=== PATIENT | female | born 1980 | race Native Hawaiian/Other Pacific Islander ===

== ENCOUNTER 2018-04-02 12:14 | Emergency (ER) | payer MEDICAID, OTHER ==
[~2018-04-02] VITALS: Ht 170.2 cm; Wt 115.0 kg
[~2018-04-02 12:14] MED LIST: PREN-64 PO
[2018-04-02] MEDS ORDERED: IBUPROFEN 600 MG TABLET PO ONE (13:30)
[2018-04-02] MEDS ORDERED: ACETAMINOPHEN 500 MG TABLET PO ONE (13:30)
[2018-04-02 13:50] VITALS: BP 137/82
== END 2018-04-02 14:02 | disposition home or self-care (01) ==
LOC: EMS 12:14
DX: H66.92 Otitis media, unspecified, left ear (principal); F15.90 Other stimulant use, unspecified, uncomplicated; F17.200 Nicotine dependence, unspecified, uncomplicated
CPT/HCPCS: 99283

== ENCOUNTER 2018-04-08 11:39 | Emergency (ER) | payer OTHER ==
[~2018-04-08] VITALS: Ht 170.2 cm; Wt 106.8 kg
[2018-04-08 14:17] VITALS: BP 126/75
== END 2018-04-08 14:20 | disposition home or self-care (01) ==
LOC: EMS 12:00
DX: S00.03XA Contusion of scalp, initial encounter (principal); F15.90 Other stimulant use, unspecified, uncomplicated; Y00.XXXA Assault by blunt object, initial encounter; Y93.89 Activity, other specified; Y92.89 Other specified places as the place of occurrence of the external cause; Y99.8 Other external cause status
CPT/HCPCS: 70450; 70486; 99284

== ENCOUNTER 2021-02-11 06:32 | Emergency (ER) | payer MEDICAID, OTHER ==
[~2021-02-11] VITALS: Ht 170.2 cm; Wt 118.2 kg
[2021-02-11 06:49] VITALS: BP 138/86
[2021-02-11] MEDS ORDERED: SODIUM CHLORIDE 0.9% 1,000 ML IV ONE (07:15)
[2021-02-11] MEDS ORDERED: KETOROLAC TROMETHAMINE 30 MG/ML VIAL IVP ONE (07:15)
[2021-02-11 07:52] LABS: BASOPHILS % (AUTO) 0.9 % (0.0-2.0); EOSINOPHILS % (AUTO) 0.7 % (1.0-6.0); HEMOGLOBIN 12.6 g/dL (12.0-16.0); LYMPHOCYTES # (AUTO) 1.7 K/uL (1.0-4.8); LYMPHOCYTES % (AUTO) 25.6 % (22.0-44.0); MEAN CORPUSCULAR HEMOGLOBIN 29.4 pg (26.0-34.0); MEAN CORPUSCULAR HGB CONC 32.2 G/dL (31.0-37.0); MEAN CORPUSCULAR VOLUME 91 fL (80-100); MONOCYTES # (AUTO) 0.4 K/uL (0.1-1.0); MONOCYTES % (AUTO) 5.5 % (2.0-9.0); NEUTROPHILS # (AUTO) 4.4 K/uL (1.8-7.7); NEUTROPHILS % (AUTO) 67.3 % (40.0-70.0); PLATELET COUNT (AUTO) 313 K/uL (150-450); RED BLOOD CELL COUNT(AUTO) 4.27 MIL/uL (4.00-5.20); RED CELL DISTRIBUTION WIDTH 12.8 % (11.5-14.5)
[2021-02-11 08:12] LABS: CALCIUM, TOTAL 8.5 mg/dL (8.8-10.5); CARBON DIOXIDE 28 mmol/L (22-29); CHLORIDE 101 mmol/L (98-107); CREATININE 0.71 mg/dL (0.60-1.30); GLOMERULAR FILTR. RATE CALC > 60 mL/min (>60); GLUCOSE,RANDOM 95 mg/dL (70-110); UREA NITROGEN, BLOOD 11 mg/dL (7-18)
[2021-02-11 08:13] LABS: ANION GAP 8 mmol/L (8-16); POTASSIUM 3.6 mmol/L (3.5-5.1); SODIUM SERUM 137 mmol/L (136-145)
[2021-02-11 08:15] LABS: ALANINE AMINOTRANSFERASE 34 U/L (12-78); ALBUMIN 3.6 g/dL (3.4-5.0); ALKALINE PHOSPHATASE 67 U/L (46-116); ASPARTATE AMINOTRANSFERASE 26 U/L (15-37); BILIRUBIN,TOTAL 0.4 mg/dL (0.1-1.0); HCG,QUANTITATIVE < 1 mIU/mL (0-6); LIPASE 56 U/L (73-393); TOTAL PROTEIN, SERUM 7.5 g/dL (6.4-8.2)
== END 2021-02-11 08:20 | disposition left against medical advice (07) ==
LOC: EMS 06:33
DX: R07.89 Other chest pain (principal); R10.84 Generalized abdominal pain; F17.210 Nicotine dependence, cigarettes, uncomplicated
CPT/HCPCS: 71045; 80053; 83690; 84484; 84702; 85025; 93005; 96361; 96374; 99285; G0480; J1885; J7030

== ENCOUNTER 2022-12-27 00:36 | Emergency (ER) | payer MEDICAID ==
[~2022-12-27] VITALS: Ht 170.2 cm; Wt 113.6 kg
[2022-12-27 01:07] VITALS: BP 150/81
[2022-12-27 02:14] LABS: BASOPHILS % (AUTO) 0.8 % (0.0-2.0); EOSINOPHILS % (AUTO) 3.3 % (1.0-6.0); HEMATOCRIT 38.9 % (36-46); HEMOGLOBIN 12.9 g/dL (12.0-16.0); LYMPHOCYTES # (AUTO) 2.7 K/uL (1.0-4.8); LYMPHOCYTES % (AUTO) 35.7 % (22.0-44.0); MEAN CORPUSCULAR HEMOGLOBIN 28.9 pg (26.0-34.0); MEAN CORPUSCULAR HGB CONC 33.1 G/dL (31.0-37.0); MEAN CORPUSCULAR VOLUME 87 fL (80-100); MONOCYTES # (AUTO) 0.5 K/uL (0.1-1.0); MONOCYTES % (AUTO) 5.9 % (2.0-9.0); NEUTROPHILS # (AUTO) 4.1 K/uL (1.8-7.7); NEUTROPHILS % (AUTO) 54.3 % (40.0-70.0); PLATELET COUNT (AUTO) 302 K/uL (150-450); RED BLOOD CELL COUNT(AUTO) 4.46 MIL/uL (4.00-5.20); RED CELL DISTRIBUTION WIDTH 13.2 % (11.5-14.5)
[2022-12-27 02:22] LABS: APPEARANCE,URINE CLEAR (CLEAR); BILIRUBIN,URINE NEGATIVE (NEGATIVE); GLUCOSE, URINE (UA) NEGATIVE (NEGATIVE); KETONES,URINE NEGATIVE (NEGATIVE); LEUKOCYTE ESTERASE ,URINE NEGATIVE (NEGATIVE); NITRATE,URINE NEGATIVE (NEGATIVE); OCCULT BLOOD,URINE NEGATIVE (NEGATIVE); PH,URINE 5.5 (5.0-8.0); PROTEIN,URINE NEGATIVE (NEGATIVE); SPECIFIC GRAVITIY, URINE 1.015 (1.003-1.030); UROBILINOGEN,URINE <=1.0 mg/dL (<=1.0)
[2022-12-27 02:24] LABS: ANION GAP 7 mmol/L (8-16); CALCIUM, TOTAL 9.3 mg/dL (8.8-10.5); CARBON DIOXIDE 28 mmol/L (22-29); CHLORIDE 101 mmol/L (98-107); CREATININE 0.69 mg/dL (0.60-1.30); GLOMERULAR FILTR. RATE CALC > 60 mL/min (>60); GLUCOSE,RANDOM 100 mg/dL (70-110); POTASSIUM 3.4 mmol/L (3.5-5.1); SODIUM SERUM 136 mmol/L (136-145)
[2022-12-27 02:32] LABS: AMPHET/METH SCREEN,URINE POSITIVE (NEGATIVE); BARBITURATE SCREEN, URINE NEGATIVE (NEGATIVE); BENZODIAZEPINES SCREEN,URINE NEGATIVE (NEGATIVE); CANNABINOID SCREEN,URINE NEGATIVE (NEGATIVE); COCAINE SCREEN,URINE NEGATIVE (NEGATIVE); METHADONE SCREEN, URINE NEGATIVE (NEGATIVE); OPIATE SCREEN,URINE NEGATIVE (NEGATIVE); PHENCYCLIDINE SCREEN,URINE NEGATIVE (NEGATIVE)
[2022-12-27 02:38] LABS: B-TYPE NATRIURETIC PEPTIDE < 5 pg/mL (0-100)
[2022-12-27 02:49] LABS: ALANINE AMINOTRANSFERASE 29 U/L (12-78); ALBUMIN 3.9 g/dL (3.4-5.0); ALKALINE PHOSPHATASE 56 U/L (46-116); ASPARTATE AMINOTRANSFERASE 19 U/L (15-37); BILIRUBIN,TOTAL 0.5 mg/dL (0.1-1.0); CREATINE KINASE, TOTAL ONLY 400 U/L (26-192); TOTAL PROTEIN, SERUM 7.5 g/dL (6.4-8.2)
== END 2022-12-27 03:50 | disposition left against medical advice (07) ==
LOC: EMS 00:44
DX: R07.89 Other chest pain (principal); F15.10 Other stimulant abuse, uncomplicated; F17.210 Nicotine dependence, cigarettes, uncomplicated
CPT/HCPCS: 99285; 71045; 80053; 82550; 83880; 84484; 84703; 85025; 36415; 93005; 81003; 80307 ×2; G0480

== ENCOUNTER 2024-04-22 10:20 | Emergency (ER) | payer MEDICAID ==
[~2024-04-22] VITALS: Ht 170.2 cm; Wt 118.2 kg
[2024-04-22 10:27] VITALS: BP 110/70; PULSE 78; RESP 14; TEMP 98; O2SAT 98
[2024-04-22] MEDS: RisperiDONE 1 MG TABLET PO ONE (11:26)
[2024-04-22] MEDS ORDERED: RISP-32 PO (11:44)
== END 2024-04-22 11:56 | disposition home or self-care (01) ==
LOC: EMS 10:22
DX: F22 Delusional disorders (principal); F10.20 Alcohol dependence, uncomplicated; F32.A Depression, unspecified; F20.9 Schizophrenia, unspecified; F15.90 Other stimulant use, unspecified, uncomplicated
CPT/HCPCS: 99283; 99284

== ENCOUNTER 2025-07-26 12:14 | Emergency (ER) | payer MEDICAID ==
[~2025-07-26] VITALS: Ht 170.2 cm; Wt 127.0 kg
[~2025-07-26 12:14] MED LIST changes: -PREN-64 PO; +RISP-32 PO
[2025-07-26] MEDS ORDERED: CETI10TA77 PO (13:56)
[2025-07-26] MEDS ORDERED: PERM60CR21 TP (13:56)
[2025-07-26 14:09] VITALS: BP 125/57; PULSE 76; RESP 18; TEMP 97.7; O2SAT 98
== END 2025-07-26 14:14 | disposition home or self-care (01) ==
LOC: EMS 12:15
DX: R44.2 Other hallucinations (principal); F15.90 Other stimulant use, unspecified, uncomplicated
CPT/HCPCS: 99283; Z7502